=== PATIENT | male | born 1955 | race Caucasian/White ===

== ENCOUNTER 2021-05-31 13:17 | Emergency (ER) | payer MEDICAID ==
[~2021-05-31] VITALS: Ht 167.6 cm; Wt 84.8 kg
--- NOTE | 2021-05-31 13:45 | NUR ---
IGNACIO DE LEON From Home "Shaky/chills/nausea/vomiting BS-117" Patient a/ox4, breathing even and unlabored, pashto speaking. No distress noted. HR elevated 120.
[2021-05-31] MEDS ORDERED: ACETAMINOPHEN ES 500 MG TABLET ONE (14:56)
[2021-05-31] MEDS ORDERED: IBUPROFEN 600 MG TABLET ONE (14:57)
[2021-05-31] MEDS ORDERED: IV NS 0.9% 500 ML BAG IV ONE (15:00)
[2021-05-31] MEDS ORDERED: IBUPROFEN 600 MG TABLET PO ONE (15:00)
[2021-05-31] MEDS ORDERED: ACETAMINOPHEN ES 500 MG TABLET PO ONE (15:00)
[2021-05-31] MEDS ORDERED: IV NS 0.9% 1,000 ML BAG IV ONE ×2 (15:00)
[2021-05-31 15:01] LABS: BASOPHILS % (AUTO) 0.3 % (0.0-2.0); EOSINOPHILS % (AUTO) 0.6 % (0.0-6.0); HEMATOCRIT 45 % (39-51); HEMOGLOBIN 14.6 g/dL (13.5-17.5); LYMPHOCYTES # (AUTO) 0.3 K/uL (0.8-4.8); LYMPHOCYTES % (AUTO) 7.2 % (20.0-44.0); MEAN CORPUSCULAR HGB CONC 33 g/dl (31.0-36.0); MEAN CORPUSCULAR VOLUME 83 fL (80-96); MONOCYTES # (AUTO) 0.1 K/uL (0.1-1.30); MONOCYTES % (AUTO) 1.3 % (2.0-12.0); NEUTROPHILS # (AUTO) 3.9 K/uL (1.8-8.9); NEUTROPHILS % (AUTO) 90.6 % (43.0-81.0); PLATELET COUNT (AUTO) 78 K/uL (150-450); RED BLOOD CELL COUNT(AUTO) 5.42 MIL/uL (4.5-6.0); WHITE BLOOD COUNT (AUTO) 4.3 K/uL (4.3-11.0)
[2021-05-31 15:19] LABS: ALANINE AMINOTRANSFERASE 19 U/L (12-78); ALBUMIN 4.1 g/dL (3.4-5.0); ALKALINE PHOSPHATASE 71 U/L (46-116); ASPARTATE AMINOTRANSFERASE 10 U/L (15-37); BILIRUBIN,DIRECT 0.2 mg/dL (0.0-0.2); BILIRUBIN,TOTAL 0.8 mg/dL (0.2-1.0); CARBON DIOXIDE 24 mmol/L (21-32); CHLORIDE 103 mmol/L (98-107); GLUCOSE 186 mg/dL (74-106); POTASSIUM 4.1 mmol/L (3.5-5.1); SODIUM SERUM 138 mmol/L (136-145); TOTAL PROTEIN, SERUM 7.7 g/dL (6.4-8.2); UREA NITROGEN, BLOOD 29 mg/dL (7-18)
[2021-05-31 15:46] LABS: BILIRUBIN,URINE NEGATIVE (NEGATIVE); COLOR,URINE YELLOW (YELLOW); LEUKOCYTE ESTERASE ,URINE NEGATIVE (NEGATIVE); NITRITE, URINE NEGATIVE (NEGATIVE); PROTEIN,URINE TRACE mg/dl (NEGATIVE); UGLUCOSE 250 MG/DL mg/dL (NEGATIVE); UROBILINOGEN,URINE 0.2 EU/dL (0.2)
[2021-05-31 16:14] LABS: BACTERIA,URINE None seen /HPF (None Seen); SQUAMOUS EPITHELIAL CELL,UR 0-2 /HPF (None Seen); WBC,URINE 0-2 /HPF (0-3)
[2021-05-31 16:18] LABS: BAND % (MANUAL) 20 % (0.0-5.0); LYMPHOCYTES % (MANUAL) 5 % (16-48); MONOCYTES % (MANUAL) 3 % (0-11.0); NEUTROPHILS % (MANUAL) 72 (42-76)
--- NOTE | 2021-05-31 16:23 | NUR ---
PATIENT RESTING, NO DISTRESS NOTED.
[2021-05-31] MEDS ORDERED: AZIT250T PO (16:47)
[2021-05-31] MEDS ORDERED: IBUP-1957 PO (16:47)
--- NOTE | 2021-05-31 17:50 | NUR ---
Patient a/ox4, breathing even and unlabored, no sob noted. temperature improved. IV removed. Catheter intact and site benign. Pressure and 4x4 applied to site. No bleeding noted.Patient discharged to home in stable condition. Written and verbal after care instructions given. Patient verbalizes understanding of instruction.
[2021-05-31 17:51] VITALS: BP 120/72
== END 2021-05-31 17:51 | disposition home or self-care (01) ==
LOC: ER 14:19
DX: R50.9 Fever, unspecified (principal); B34.9 Viral infection, unspecified; R00.0 Tachycardia, unspecified; Z20.822 Contact with and (suspected) exposure to COVID-19; K21.9 Gastro-esophageal reflux disease without esophagitis; E11.65 Type 2 diabetes mellitus with hyperglycemia; Z79.4 Long term (current) use of insulin; I10 Essential (primary) hypertension
CPT/HCPCS: 36415; 71045; 80048; 80076; 81001; 83605 ×2; 84145; 84484; 85007; 85025; 85730; 87040 ×2; 87086; 87426; 87804; 93005; 96360; 99285; C9803; J7030; J7040